=== PATIENT | female | born 1980 | race Caucasian/White ===

== ENCOUNTER 2018-01-26 05:57 | Inpatient (IN) | payer OTHER, MEDICAID ==
[2018-01-26] MEDS ORDERED: Sodium Citrate/Citric Acid* 15 ML UDC PO ONE (06:59)
[2018-01-26] MEDS ORDERED: ceFOXitin 2 GM IVPREMIX* 2 GM/50 ML BAG IVPB ONE (06:59)
--- NOTE | 2018-01-26 07:07 | HP ---
General Information - Reason for Visit gush of fluid - General Information Maternal Age: 37 Grav: 4 Para: 0 Estimated Due Date: 02/22/18 Determined By: IVF transfer date Maternal Blood Type and Rh: A Positive - Results this Serology/RPR Result: Non-Reactive Rubella Result: Immune HBsAg Result: Negative HIV Result: Negative GBS Culture Result: Positive Past Medical History Delivery History: See Records Pertinent Past Medical History: See Records - hypertension/ ivf/ asthma Review of Systems Constitutional: Comfortable Genitourinary: Leaking Fluid Musculoskeletal: No Complaint Neurological: No Headache Movement: Normal Exam Allergies/Adverse Reactions: Allergies No Known Allergies Allergy (Verified 01/26/18 06:37) Lab Values - Entire Visit: Laboratory Tests 01/26/18 06:15 Vag Amniotic Fld Detect Positive - Measurements Height: 5 ft 8 in Weight: 243 lb 0.002 oz Weight in lbs: 243.089766 Body Mass Index (BMI): 36.9 Pre- Weight: 207 lb 15.992 oz Weight Gained This : 35.000 lbs and 0.010 ozs - Exam Breast: Breast Exam Deferred Extremities: Edema - +2 Heart: Normal Rhythm/Heart Sounds HEENT: No Significant Findings Lungs: Clear Bilaterally Reflexes: DTR 2+ Targeted Exam Findings See L&D Outpatient Visit Provider Note for Findings: N/A Presenting Part: Breech Membrane Status: Leaking Amniotic Fluid Evaluation: Positive ROM Plus EFM Findings - External Monitor Findings Baseline Heart Rate: 130 External Monitor Findings: Accelerations Present, Variability Moderate Contractions: None Assessment/Plan - Obstetrical Risk Factors Obstetrical Risk Factors: GBS Positive, Assisted Reproduction, Chronic Hypertension, Breech - Plan Plan: C/S Delivery - . alternative of steroids discussed but feel risk of infection outweighs potential benefit from steroid reduction of rds
[2018-01-26 09:03] LABS: ABS Basophils 0.1 10^3/ul (0-0.2); ABS Eosinophils 0.2 10^3/ul (0-0.6); ABS Lymphocytes 1.7 10^3/ul (1.0-4.8); ABS Monocytes 0.7 10^3/ul (0-0.8); ABS Nucleated RBC 0 10^3/ul; Eosinophil % 1.2 % (0-6); Hematocrit 32 % (35-47); Hemoglobin 10.8 g/dl (12.0-16.0); Lymphocyte % 13.5 % (25-47); Mean Corpuscular HGB Conc 34 g/dl (31-36); Mean Corpuscular Hemoglobin 29 pg (27-31); Mean Corpuscular Volume 86 fL (80-97); Mean Platelet Volume 10.3 um3 (7.4-10.4); Nucleated Red Blood Cells % 0; Platelet Count 160 10^3/ul (150-450); Red Blood Count 3.72 10^6/ul (4.00-5.40); Red Cell Distribution Width 15 % (10.5-15); White Blood Count 12.6 10^3/ul (3.5-10.8)
[2018-01-26] MEDS ORDERED: Morphine PF AMP (0.5MG/ML)* 5 MG/10 ML AMP ONE (09:51)
[2018-01-26] MEDS ORDERED: Bupivacaine-MPF SPINAL* 7.5 MG/ML - 2ML AMP ONE (09:52)
[2018-01-26] MEDS ORDERED: Lidocaine 2% PF* 10 ML AMP ONE (09:52)
[2018-01-26] MEDS ORDERED: Ondansetron INJ* 2 MG/ML VIAL ONE (11:37)
[2018-01-26] MEDS ORDERED: OXYTOCIN* 10 UNITS/ML 1 ML VIAL ONE (11:37)
[2018-01-26] MEDS ORDERED: Witch Hazel PAD* JAR TOPICAL PRN (11:55)
[2018-01-26] MEDS ORDERED: Glycerin ADULT SUPP PR PRN (11:55)
[2018-01-26] MEDS ORDERED: Dibucaine 1% 28.35 GM TUBE PR PRN (11:55)
[2018-01-26] MEDS ORDERED: Zolpidem TAB* 5 MG PO PRN (11:55)
[2018-01-26] MEDS ORDERED: Oxytocin in LR* 20 UNITS/1,000 ML BAG IVPB SCH (12:00)
[2018-01-26] MEDS ORDERED: Naloxone* 0.4 MG/ML 1 ML VIAL IV PRN ×2 (12:04→12:06)
[2018-01-26] MEDS ORDERED: fentaNYL* 50 MCG/ML 2 ML VIAL (100 MCG VIAL) IV PRN (12:04)
[2018-01-26] MEDS ORDERED: Naloxone* 2 MG in NS 0.9% 250 ML* 250 ML IV PRN (12:06)
[2018-01-26] MEDS ORDERED: diPHENhydraMINE IV* 50 MG/ML 1 ml VIAL (BENADRYL) IV PRN (12:06)
[2018-01-26] MEDS: Simethicone TAB* 80 MG TAB.CHEW PO SCH ×3 (14:03→22:20)
[2018-01-26] MEDS: Ibuprofen TAB* 600 MG PO PRN (16:51)
[2018-01-26] MEDS: oxyCODONE/Acetamin 5/325 MG* TAB PO PRN ×2 (18:32→22:29)
[2018-01-26] MEDS: Docusate CAP* 100 MG PO SCH ×2 (18:36→22:19)
[2018-01-26] MEDS ORDERED: Labetalol TAB* 100 MG PO SCH (21:00)
[2018-01-26] MEDS: Citalopram TAB* 10 MG PO SCH (22:19)
[2018-01-26] MEDS: Labetalol TAB* 100 MG PO SCH (22:20)
--- NOTE | 2018-01-27 01:09 | OP ---
DATE OF OPERATION: 01/26/18 - ROOM #103 DATE OF : 82 SURGEON: Art Fonseca MD MANAGER PRINT: Tania Jorge CNM ANESTHESIA: Spinal with Duramorph. PRE-OP DIAGNOSES: 36 weeks premature rupture of membranes, breech presentation, and hypertension. POST-OP DIAGNOSES: 36 weeks premature rupture of membranes, breech presentation, and hypertension. OPERATIVE PROCEDURE: Low transverse section. FINDINGS: Include a viable female, Apgars were 6 and 8, weight was 5 pounds 12 ounces. The left ovary contained a powder burn 4 mm endometriosis implant. The left tube and right ovary and tube all appeared normal. ESTIMATED BLOOD LOSS: 600 cc. DESCRIPTION OF PROCEDURE: The patient was identified, procedure identified as a low transverse section. The patient was taken to the operating room, prepped and draped in the usual fashion in the left lateral recumbent position under spinal anesthesia. A Pfannenstiel incision was made in the abdomen and carried down through the fat, fascia and peritoneum. An Sly retractor was placed. A transverse incision was made in the lower uterine segment and extended laterally using blunt dissection. The infant was brought out initially in a ivy breech position and then extracted through breech extraction technique without difficulty. The cord was doubly clamped and cut and the was handed to the awaiting plastering contractor. Cord blood was obtained. Placenta was delivered spontaneously. The uterine incision was then closed using 0 Polysorb in a running fashion after being wiped out with a wet lap sponge. A second layer was used to imbricate the first layer. Good hemostasis was verified. Both ovaries were inspected. Good hemostasis was verified and the peritoneum was then closed using 3-0 Polysorb in a running fashion. Good hemostasis was achieved in the subrectus layers. The fascia was closed with 0 Polysorb in a running fashion. Good hemostasis was seen in the subcu. Copious irrigation was utilized and suctioned out. The space and subcu fat was closed using 3-0 Polysorb in a simple fashion and skin was closed with 4-0 Monocryl in a subcuticular fashion. All sponge and instrument counts were correct. The patient returned to the recovery room in stable condition. [id number]/[facility] #: [id number] [facility] HOSPITALRobin
[2018-01-27] MEDS: Ibuprofen TAB* 600 MG PO PRN ×4 (01:45→21:11)
[2018-01-27] MEDS: oxyCODONE/Acetamin 5/325 MG* TAB PO PRN ×5 (03:33→21:11)
[2018-01-27 08:29] LABS: ABS Basophils 0 10^3/ul (0-0.2); ABS Eosinophils 0.2 10^3/ul (0-0.6); ABS Lymphocytes 1.7 10^3/ul (1.0-4.8); ABS Monocytes 0.5 10^3/ul (0-0.8); ABS Neutrophils 6.6 10^3/ul (1.5-7.7); ABS Nucleated RBC 0 10^3/ul; Eosinophil % 1.9 % (0-6); Hematocrit 32 % (35-47); Hemoglobin 10.8 g/dl (12.0-16.0); Lymphocyte % 18.7 % (25-47); Mean Corpuscular HGB Conc 34 g/dl (31-36); Mean Corpuscular Hemoglobin 29 pg (27-31); Mean Corpuscular Volume 87 fL (80-97); Nucleated Red Blood Cells % 0.1; Platelet Count 152 10^3/ul (150-450); Red Blood Count 3.68 10^6/ul (4.00-5.40); Red Cell Distribution Width 15 % (10.5-15)
[2018-01-27] MEDS: Docusate CAP* 100 MG PO SCH ×3 (08:29→21:11)
[2018-01-27] MEDS: Labetalol TAB* 100 MG PO SCH ×3 (08:29→21:16)
[2018-01-27] MEDS: Simethicone TAB* 80 MG TAB.CHEW PO SCH ×4 (08:29→22:57)
[2018-01-27] MEDS ORDERED: [UNRECOGNIZED DRUG - REMARK] PO SCH (09:00)
[2018-01-27] MEDS: BuPROPion XL* 300 MG TAB.XL PO SCH (09:00)
[2018-01-27] MEDS: Ferrous Gluconate TAB* 324 MG TAB PO SCH ×2 (14:38→22:55)
[2018-01-27] MEDS ORDERED: oxyCODONE/Acetamin 5/325 MG* TAB PO PRN (17:45)
[2018-01-27] MEDS: Citalopram TAB* 10 MG PO SCH (21:10)
[2018-01-28] MEDS: oxyCODONE/Acetamin 5/325 MG* TAB PO PRN ×5 (02:07→18:52)
[2018-01-28] MEDS: Ibuprofen TAB* 600 MG PO PRN ×4 (02:08→20:35)
[2018-01-28] MEDS: Simethicone TAB* 80 MG TAB.CHEW PO SCH ×4 (08:41→20:35)
[2018-01-28] MEDS: BuPROPion XL* 300 MG TAB.XL PO SCH (08:41)
[2018-01-28] MEDS: Labetalol TAB* 100 MG PO SCH ×3 (08:41→20:36)
[2018-01-28] MEDS: Docusate CAP* 100 MG PO SCH ×3 (08:42→20:35)
[2018-01-28] MEDS: Acetaminophen TAB* 325 MG PO PRN (17:45)
[2018-01-28] MEDS: Citalopram TAB* 10 MG PO SCH (20:36)
[2018-01-29] MEDS: oxyCODONE/Acetamin 5/325 MG* TAB PO PRN ×2 (02:01→08:04)
[2018-01-29] MEDS: Ibuprofen TAB* 600 MG PO PRN ×2 (02:01→08:04)
[2018-01-29] MEDS: BuPROPion XL* 300 MG TAB.XL PO SCH (08:04)
[2018-01-29] MEDS: Simethicone TAB* 80 MG TAB.CHEW PO SCH (08:04)
[2018-01-29] MEDS: Docusate CAP* 100 MG PO SCH (08:04)
[2018-01-29] MEDS: Labetalol TAB* 100 MG PO SCH (08:05)
[2018-01-29 08:30] VITALS: BP 146/93
[2018-01-29] MEDS: Acetaminophen TAB* 325 MG PO PRN (11:34)
== END 2018-01-29 11:40 | disposition home or self-care (01) | DRG 765 ==
LOC: MCHOBOUT 05:57 → MCHOB 07:22
PROVIDERS: ADMIT Obstetrics & Gynecology; ATTEND Obstetrics & Gynecology
PROC: 10D00Z1 Extraction of Products of Conception, Low, Open Approach (ICD-10-PCS; principal; 2018-01-26 10:44)
DX: O32.1XX0 Maternal care for breech presentation, not applicable or unspecified (principal); O10.92 Unspecified pre-existing hypertension complicating childbirth; O42.013 Preterm premature rupture of membranes, onset of labor within 24 hours of rupture, third trimester; O99.824 Streptococcus B carrier state complicating childbirth; Z3A.36 36 weeks gestation of pregnancy; Z37.0 Single live birth
CPT/HCPCS: 36415; 84112; 85025; 86850; 86900; 86901; A9270-GY; J0694; J1200; J2001; J2405; J2590